=== PATIENT | female | born 1995 | race Caucasian/White ===

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

== ENCOUNTER 2019-02-05 16:20 | Emergency (ER) | payer SELFPAY ==
[~2019-02-05] VITALS: Ht 165.1 cm; Wt 78.0 kg
[2019-02-05 16:35] VITALS: BP 115/50; Ht 165.1 cm; Wt 78.0 kg
== END 2019-02-05 17:26 | disposition home or self-care (01) ==
LOC: ED 16:20
DX: S61.412D Laceration without foreign body of left hand, subsequent encounter (principal); X58.XXXD Exposure to other specified factors, subsequent encounter

== ENCOUNTER 2019-06-20 16:12 | Emergency (ER) | payer SELFPAY ==
[~2019-06-20] VITALS: Ht 165.1 cm; Wt 83.5 kg
[2019-06-20 16:35] VITALS: BP 122/48; Ht 165.1 cm; Wt 83.5 kg
== END 2019-06-20 17:51 | disposition home or self-care (01) ==
LOC: ED 16:12
DX: H60.91 Unspecified otitis externa, right ear (principal)

== ENCOUNTER 2019-07-02 19:05 | Emergency (ER) | payer SELFPAY ==
[~2019-07-02] VITALS: Ht 165.1 cm; Wt 82.1 kg
[2019-07-02 19:19] VITALS: Ht 165.1 cm; Wt 82.1 kg
[2019-07-02 20:33] LABS: BASOPHIL % 0.2 % (0-2); PLATELET COUNT 327 x10^3mcL (130-400)
[2019-07-02 20:34] LABS: RED CELL DISTRIBUTION WIDTH 22.7 % (11.5-14.5)
[2019-07-02 20:35] LABS: UA SPECIFIC GRAVITY >=1.030 (1.005-1.035); microscopic required? YES; urine erythrocyte TRACE (NEGATIVE)
[2019-07-02 22:03] VITALS: BP 104/67
== END 2019-07-02 22:03 | disposition home or self-care (01) ==
LOC: ED 19:05
PROVIDERS: Emergency Medicine
DX: O03.9 Complete or unspecified spontaneous abortion without complication (principal)
CPT/HCPCS: 36415